=== PATIENT | female | born 1930 | race Two or more races ===

== ENCOUNTER 2017-06-11 14:38 | Inpatient (IN) | payer MEDICARE, MEDICAID ==
[~2017-06-11] VITALS: Ht 152.4 cm; Wt 46.8 kg
--- NOTE | 2017-06-11 14:40 | NUR ---
BBPA FROM [facility] C/O LLE SWELLING AND RECENT LEFT HIP FX SP ORIF, NAD NOTED, VSS, RESP EVEN AND UNLABORED, PUT ON HOSPITAL MD TEMO AT BS.
--- NOTE | 2017-06-11 15:10 | NUR ---
URINE SAMPLE AND BLOOD SENT TO LAB
[2017-06-11 15:18] LABS: BASOPHILS # (AUTO) 0.1 /CMM (0.0-0.2); BASOPHILS % (AUTO) 0.9 % (0.0-2.0); EOSINOPHILS # (AUTO) 0.2 /CMM (0.0-0.7); EOSINOPHILS % (AUTO) 2.8 % (0.0-6.0); HEMATOCRIT 42 % (33-45); HEMOGLOBIN 14.2 g/dL (11.5-14.8); LYMPHOCYTES # (AUTO) 1.4 /CMM (0.8-4.8); LYMPHOCYTES % (AUTO) 21.8 % (20.0-44.0); MEAN CORPUSCULAR HEMOGLOBIN 31 PG (26.0-33.0); MEAN CORPUSCULAR HGB CONC 34 g/dl (31.0-36.0); MEAN CORPUSCULAR VOLUME 92 fL (82-100); MONOCYTES # (AUTO) 0.5 /CMM (0.1-1.30); MONOCYTES % (AUTO) 7.4 % (2.0-12.0); NEUTROPHILS # (AUTO) 4.2 /CMM (1.8-8.9); NEUTROPHILS % (AUTO) 67.1 % (43.0-81.0); PLATELET COUNT (AUTO) 228 /CMM (150-450); RDW COEFFICIENT OF VARIATION 13.7 (11.5-15.0); RED BLOOD CELL COUNT(AUTO) 4.63 MIL/uL (4.0-5.2); WHITE BLOOD COUNT (AUTO) 6.4 K/uL (4.3-11.0)
[2017-06-11 15:30] LABS: CALCIUM, SERUM 9.4 mg/dL (8.5-10.1); CARBON DIOXIDE 29 mmol/L (21-32); CHLORIDE 105 mmol/L (98-107); CREATININE 0.7 mg/dL (0.6-1.3); GLUCOSE 144 mg/dL (74-106); POTASSIUM 3.6 mmol/L (3.5-5.1); SODIUM SERUM 140 mmol/L (136-145); UREA NITROGEN, BLOOD 13 mg/dL (7-18)
[2017-06-11 15:35] LABS: APPEARANCE,URINE Clear (CLEAR); BILIRUBIN,URINE Negative (NEGATIVE); BLOOD, URINE Negative Ery/uL (NEGATIVE); COLOR,URINE Yellow (YELLOW); KETONES,URINE Negative (NEGATIVE); LEUKOCYTE ESTERASE ,URINE Negative (NEGATIVE); NITRITE, URINE Negative (NEGATIVE); PROTEIN,URINE Negative (NEGATIVE); UGLUCOSE >=1000 mg/dL (NEGATIVE); UROBILINOGEN,URINE 0.2 EU/dL (0.2)
[2017-06-11 15:36] LABS: ALANINE AMINOTRANSFERASE 12 U/L (12-78); ALKALINE PHOSPHATASE 101 U/L (46-116); ASPARTATE AMINOTRANSFERASE 13 U/L (15-37); BILIRUBIN,DIRECT 0.2 mg/dL (0.0-0.2); BILIRUBIN,TOTAL 0.6 mg/dL (0.2-1.0); TOTAL PROTEIN, SERUM 7.6 g/dL (6.4-8.2)
[2017-06-11 15:45] LABS: BACTERIA,URINE None seen /HPF (None Seen); RBC,URINE 0-2 /HPF (0-2); SQUAMOUS EPITHELIAL CELL,UR Few /HPF (None Seen); WBC,URINE 0-2 /HPF (0-3); YEAST,URINE Few /HPF (None Seen)
[2017-06-11 16:00] VITALS: BP 161/91
--- NOTE | 2017-06-11 16:35 | NUR ---
U/S TECH AT BEDSIDE FOR LLE DUPLEX ULTRASOUND.
[2017-06-11] MEDS ORDERED: ISOS30TA6 PO (16:57)
[2017-06-11] MEDS ORDERED: RISE35TA8 PO (16:57)
[2017-06-11] MEDS ORDERED: DOCU250C75 PO (16:57)
[2017-06-11] MEDS ORDERED: MIRT15TA7 PO (16:57)
--- NOTE | 2017-06-11 16:57 | NUR ---
LOVENOX 45 MG GIVEN SQ
[2017-06-11] MEDS ORDERED: LINA5TAB PO (16:59)
[2017-06-11] MEDS ORDERED: DAPA5TAB PO (16:59)
[2017-06-11] MEDS ORDERED: METF500T4 PO (16:59)
[2017-06-11] MEDS ORDERED: SIMV20TA6 PO (16:59)
[2017-06-11] MEDS ORDERED: ZOLP5TAB2 PO (16:59)
[2017-06-11] MEDS ORDERED: ENOXAPARIN SODIUM 60 MG/0.6 ML DISP.SYRIN SQ ONE (17:00)
--- NOTE | 2017-06-11 17:01 | NUR ---
REPORT GIVEN TO JAYRO. PT AWAITING TRANSFER TO FLOOR.
--- NOTE | 2017-06-11 17:02 | NUR ---
PAGED DR RUVALCABA
[2017-06-11 17:30] VITALS: BP 161/91
--- NOTE | 2017-06-11 17:30 | NUR ---
INVENTORY CONTROL SPECIALIST NOTES PT. WAS BROUGHT TO ROOM 307 BED 1 IN MEDICALLY STABLE CONDITION. BELONGINGS LIST COMPLETED. PT. IS AMBULATORY, WITH UNSTEADY GAIT. WILL ASSESS AND MONITOR PT.
[2017-06-11] MEDS ORDERED: DEXTROSE 50%-WATER 50 ML DISP.SYRIN IV PRN (18:00)
[2017-06-11] MEDS ORDERED: HYDROCODONE/APAP 5/325MG 1 EACH TABLET PO PRN (18:00)
[2017-06-11] MEDS ORDERED: ONDANSETRON HCL/PF 4 MG/2 ML VIAL IVP PRN (18:00)
[2017-06-11] MEDS ORDERED: ZOLPIDEM TARTRATE 5 MG TABLET PO PRN ×2 (18:00)
[2017-06-11] MEDS ORDERED: MAGNESIUM HYDROXIDE 30 ML UDC PO PRN (18:00)
[2017-06-11] MEDS ORDERED: MAG HYDROX/AL HYDROX/SIMETH 30 ML UDC PO PRN (18:00)
[2017-06-11] MEDS ORDERED: Z GUARD REMEDY 2 OZ OINT TP PRN (18:00)
--- NOTE | 2017-06-11 19:00 | NUR ---
RN NOTES TALKED TO PT.'S GRANDDAUGHTER TO HELP TRANSLATE FOR PT. PT. SAID THAT SHE HAS PAIN IN HER LEFT LEG BUT DOES NOT WANT ANY PAIN MEDICATION AT THIS TIME.
--- NOTE | 2017-06-11 19:44 | NUR ---
ms/rn opening notes PATIENT IN BED, AWAKE, ALERT X2. UNABLE TO SPEAK IN UPPER SORBIAN, REQUIRE SHELTERED WORKSHOP EXECUTIVE DIRECTOR DUE TO REPORT OF WANDERING . WILL CONTINUE TO PROVIDE CARE AND MONITOR PATIENT PROVIDE AND OFFER FOODS. IV ON LEFT AC. W/ NO S/S OF INFILTRATION.
[2017-06-11 19:48] VITALS: BP 145/81
--- NOTE | 2017-06-11 19:50 | NUR ---
RN CLOSING NOTES 1:1 SITTER AT BEDSIDE. PT. IN BED A&OX1-2, CONFUSED. BREATHING UNLABORED, AND EVENLY ON ROOM AIR. NO S/S OF ACUTE DISTRESS. PICTURES TAKEN ON SKIN ASSESSMENT. LEFT ANTECUBITAL IV ACCESS IS PATENT WITH SALINE FLUSH. BED IS IN LOWEST, LOCKED POSITION, AND 3 SIDE RAILS UP. CALL LIGHT WITHIN REACH. WILL ENDORSE REPORT TO SEWER HEAD NURSE.
[2017-06-11] MEDS: MIRTAZAPINE 15 MG TABLET PO SCH (21:49)
[2017-06-11] MEDS: SIMVASTATIN 20 MG TABLET PO SCH (21:49)
[2017-06-11] MEDS: BLOOD SUGAR DIAGNOSTIC 1 EACH STRIP VI SCH (21:50)
--- NOTE | 2017-06-11 23:45 | NUR ---
MS/RN NOTES PATIENT OBSERVED NOT ABLE TO SLEEP , PROVIDED PRN MEDICATION , TOLERATE MED. WILL MONITOR.
[2017-06-12] MEDS: BLOOD SUGAR DIAGNOSTIC 1 EACH STRIP VI SCH ×4 (06:22→21:54)
--- NOTE | 2017-06-12 06:35 | NUR ---
MS/RN CLOSING NOTES PATIENT IN BED, HOB, REQUIRE SITTER FOR SAFETY , REQUIRE ASSISTANCE AND MONITORING, PAIN MEDICATION GIVEN FOR BACK PAIN, ABLE TO SLEEP ATLEAST 5-6 HOURS. RESPIRATIONS EVEN AND UNLABORED, WILL ENDORSE TO AM RN FOR BRIJESH.
[2017-06-12 07:01] LABS: BASOPHILS % (AUTO) 0.5 % (0.0-2.0); EOSINOPHILS # (AUTO) 0.1 /CMM (0.0-0.7); EOSINOPHILS % (AUTO) 1.3 % (0.0-6.0); HEMATOCRIT 43 % (33-45); HEMOGLOBIN 14.5 g/dL (11.5-14.8); LYMPHOCYTES # (AUTO) 0.7 /CMM (0.8-4.8); LYMPHOCYTES % (AUTO) 10.8 % (20.0-44.0); MEAN CORPUSCULAR HEMOGLOBIN 31 PG (26.0-33.0); MEAN CORPUSCULAR HGB CONC 34 g/dl (31.0-36.0); MEAN CORPUSCULAR VOLUME 92 fL (82-100); MONOCYTES # (AUTO) 0.3 /CMM (0.1-1.30); MONOCYTES % (AUTO) 5.5 % (2.0-12.0); NEUTROPHILS % (AUTO) 81.9 % (43.0-81.0); PLATELET COUNT (AUTO) 213 /CMM (150-450); RDW COEFFICIENT OF VARIATION 14.4 (11.5-15.0); RED BLOOD CELL COUNT(AUTO) 4.66 MIL/uL (4.0-5.2); WHITE BLOOD COUNT (AUTO) 6.1 K/uL (4.3-11.0)
[2017-06-12 07:10] LABS: CALCIUM, SERUM 9.4 mg/dL (8.5-10.1); CARBON DIOXIDE 25 mmol/L (21-32); CHLORIDE 106 mmol/L (98-107); CREATININE 0.5 mg/dL (0.6-1.3); GLUCOSE 123 mg/dL (74-106); MAGNESIUM 1.9 mg/dL (1.8-2.4); PHOSPHORUS 3.5 mg/dL (2.5-4.9); POTASSIUM 3.1 mmol/L (3.5-5.1); SODIUM SERUM 144 mmol/L (136-145); UREA NITROGEN, BLOOD 8 mg/dL (7-18)
--- NOTE | 2017-06-12 07:24 | NUR ---
MS RN OPENING NOTES RECEIVED PATIENT IN STABLE CONDITION. PATIENT IS RESTING IN BED. BEDSIDE RAILS ARE UP X2. BED IS LOCKED AND LOWERED. CALL LIGHT IS WITHIN REACH. WILL CONTINUE TO MONITOR.
[2017-06-12 08:00] VITALS: BP 147/78
[2017-06-12] MEDS: ISOSORBIDE MONONITRATE (30MG) 30 MG TAB.SR.24H PO SCH (08:44)
[2017-06-12] MEDS: DOCUSATE SODIUM 250 MG CAPSULE PO SCH ×2 (08:44→17:53)
[2017-06-12] MEDS: INSULIN REGULAR, HUMAN 100 UNIT/ML 3 ML VIAL SQ PRN (13:13)
[2017-06-12] MEDS: POTASSIUM CHLORIDE 20 MEQ TAB.PRT.SR PO SCH ×2 (15:16→16:19)
[2017-06-12 16:00] VITALS: BP 113/68
--- NOTE | 2017-06-12 18:50 | NUR ---
MS RN CLOSING NOTES PATIENT IS RESTING IN BED COMFORTABLY. IN NO APPARENT DISTRESS. BEDSIDE RAILS ARE UP X2. BED IS LOCKED AND LOWERED. WILL ENDORSE CARE TO CCTV TECHNICIAN NURSE FOR BRIJESH.
--- NOTE | 2017-06-12 19:31 | NUR ---
MS/RN OPENING NOTES PATIENT ASSISTED TO BATHROOM W/ SITTER, AWAKE, ALERT X2. CALM AND COOPERATE BUT REQUIRE FREQUENT REORIENTATION PATIENT ATTEMPTS TO GET UP UNASSISTED. RESPIRATION EVEN AND UNLABORED. WILL CONTINUE TO MONITOR.CALL LIGHTS WITHIN REACH.
[2017-06-12 19:46] VITALS: BP 132/68
[2017-06-12 20:00] VITALS: BP 132/68
[2017-06-12] MEDS: SIMVASTATIN 20 MG TABLET PO SCH (21:12)
[2017-06-12] MEDS: MIRTAZAPINE 15 MG TABLET PO SCH (21:12)
[2017-06-12] MEDS: ENOXAPARIN SODIUM 60 MG/0.6 ML DISP.SYRIN SQ SCH (21:16)
[2017-06-12] MEDS: *INSULIN REGULAR(HUMULIN R)HUM 100 UNIT/ML VIAL SQ PRN (22:03)
[2017-06-13 04:00] VITALS: BP 138/66
--- NOTE | 2017-06-13 05:00 | NUR ---
TELE/RN NOTES PATIENT ON PACE MAKER, AT TELE READING WITH SR 65 PACING. ABLETO AMBULATE IN BATHROOM W/ ASSISTANCE, WITH SITTER FOR SAFETY PATIENT GETS UP UNASSISTED. COOPERATIVE TO CARE, SKIN PROVIDED BARRIER SKIN CARE. WILL CONTINUE TO MONITOR AND ENDORSE TO AM RN.
--- NOTE | 2017-06-13 06:39 | NUR ---
TELE/RN CLOSING NOTES PATIENT AWAKE, ALERT, DIETARY CALLED FOR FOOD PREFERENCE, NO BEEF PER FAMILY, TELE READING W/ PACEMAKER AT 65 PACING, RESPIRATION EVEN AND UNLABORED, COOPERATIVE TO CARE BUT REQUIRE EXTENSIVE ASSISTANCE, WILL CONTINUT TO MONITOR AND REPORT ANY CHANGES.OFFERED/PROVIDE FLUIDS, HOB ELEVATED.
[2017-06-13] MEDS: BLOOD SUGAR DIAGNOSTIC 1 EACH STRIP VI SCH ×4 (06:43→21:53)
[2017-06-13 07:13] LABS: CALCIUM, SERUM 8.9 mg/dL (8.5-10.1); CARBON DIOXIDE 27 mmol/L (21-32); CHLORIDE 110 mmol/L (98-107); CREATININE 0.6 mg/dL (0.6-1.3); GLUCOSE 108 mg/dL (74-106); POTASSIUM 3.6 mmol/L (3.5-5.1); SODIUM SERUM 146 mmol/L (136-145); UREA NITROGEN, BLOOD 11 mg/dL (7-18)
[2017-06-13 08:00] VITALS: BP 140/93
--- NOTE | 2017-06-13 08:00 | NUR ---
ALERT AND ORIENTED X1,YAKUT SPEAKING.
[2017-06-13] MEDS: ISOSORBIDE MONONITRATE (30MG) 30 MG TAB.SR.24H PO SCH (09:39)
[2017-06-13] MEDS: DOCUSATE SODIUM 250 MG CAPSULE PO SCH ×2 (09:39→17:30)
--- NOTE | 2017-06-13 11:30 | NUR ---
DTR. IN TO VISIT.
[2017-06-13] MEDS: INSULIN REGULAR, HUMAN 100 UNIT/ML 3 ML VIAL SQ PRN (11:58)
[2017-06-13 16:00] VITALS: BP 115/62
--- NOTE | 2017-06-13 18:00 | NUR ---
PT,S APPETITE BETTER,SITTER AT BEDSIDE.
[2017-06-13] MEDS: *INSULIN REGULAR(HUMULIN R)HUM 100 UNIT/ML VIAL SQ PRN ×2 (18:01→21:54)
--- NOTE | 2017-06-13 19:30 | NUR ---
rn initial notes: received report from gloria tristan in bed, awake, a/o x1 serbian speaking, sitter at bedside, pt on ra, respiration even and unlabored, on tele sinus rhythm hr 68, pt has left cw pacemaker. right ac iv access patent and flushing well, on hl. safety precautions for fall initiated call light in reach, will continue to monitor.
[2017-06-13 20:00] VITALS: BP 124/62
--- NOTE | 2017-06-13 20:30 | NUR ---
rn notes: from 322-1 pt was moved to 325-1, all belongings sent with the pt upon transfer, note from family posted on the wall.
[2017-06-13] MEDS: MIRTAZAPINE 15 MG TABLET PO SCH (21:29)
[2017-06-13] MEDS: ACETAMINOPHEN 325 MG TABLET PO PRN (21:29)
[2017-06-13] MEDS: SIMVASTATIN 20 MG TABLET PO SCH (21:29)
[2017-06-13] MEDS: ENOXAPARIN SODIUM 60 MG/0.6 ML DISP.SYRIN SQ SCH (21:30)
--- NOTE | 2017-06-13 21:30 | NUR ---
prn tylenol: pt kept pointing onto her left hip, st helen[place] speaking, confused, used flacc scale score of 3, prn tylenol 650 mg tab po administered to the pt at this time
--- NOTE | 2017-06-13 21:54 | NUR ---
accu check: blood sugar checked and reveal 102, no insulin coverage given per sliding scale, will monitor pt for any s/s of hypoglycemia or hyperglycemia
[2017-06-14] MEDS: INSULIN REGULAR, HUMAN 100 UNIT/ML 3 ML VIAL SQ PRN ×2 (06:25→11:43)
[2017-06-14] MEDS: BLOOD SUGAR DIAGNOSTIC 1 EACH STRIP VI SCH ×2 (06:25→11:40)
--- NOTE | 2017-06-14 06:26 | NUR ---
ACCU CHECK: BLOOD SUGAR IS 124, NO INSULIN COVERAGE GIVEN PER SLIDING SCALE, WALE MONITOR FOR ANY S/S OF HYPERGLYCEMIA OR HYPOGLYCEMIA
--- NOTE | 2017-06-14 06:39 | NUR ---
RN CLOSING NOTES: PT IN BED, AWAKE, REMAINS A/O X1, ON RA, APPEARS CALM AND COMFORTABLE, NO FACIA GRIMACE NOTED, SITTER AT BEDSIDE, IV ACCESS REMAINS PATENT AND FLUSHING WELL, ON HL.POSSIBLE DC TODAY, EXIT CARE COMPLETED,VS REMAINS STABLE, NEEDS ATTENDED, SAFETY PRECAUTIONS FOR FALL REMAINS ENGAGED, CALL LIGHT IN REACH WILL ENDORSE TO DAY RN FOR BRIJESH.
--- NOTE | 2017-06-14 07:30 | NUR ---
m/s feather drying machine operator: initial assessment received pt in bed awake, alert to self only; french speaking only. continue on 1:1 sitter. pt for d'c planning today. appears comfortable. call light within reach. reality orientation provided prn. will continue to monitor.
[2017-06-14 08:00] VITALS: BP 131/77
[2017-06-14 09:59] VITALS: BP 131/77
[2017-06-14] MEDS: DOCUSATE SODIUM 250 MG CAPSULE PO SCH (09:59)
[2017-06-14] MEDS: ISOSORBIDE MONONITRATE (30MG) 30 MG TAB.SR.24H PO SCH (09:59)
--- NOTE | 2017-06-14 10:00 | NUR ---
m/s radio station operator: notes pt wearing her own clothes, pt very protective of herself, pt refusing help from sitter and nurse. pt refused body check. pt able to go the bathroom on own. instructed to call for assistance. will continue to monitor.
--- NOTE | 2017-06-14 13:00 | NUR ---
m/s director of campus recreation: notes received order from dr. garcia to Transfer pt to custodial facility for continuation of care. oxana (case management) made aware. [facility] will notify family per oxana. granddaughter doesn't want pt to go back to [facility], family wants to take her home. cn aware.
[2017-06-14] MEDS: ACETAMINOPHEN 325 MG TABLET PO PRN (14:12)
--- NOTE | 2017-06-14 14:25 | NUR ---
m/s nursing unit manager: notes dr. garcia notified and made aware re: family refusing snf or assisted living facility. family wants to take pt home. dr. garcia okay with it and will come up to write a xarelto prescription. cn aware. family made aware.
--- NOTE | 2017-06-14 14:35 | NUR ---
m/s computer game programmer: notes oxana (case management) here and made aware. oxana spoke to daughter in person; also called daniel (granddaughter). family still refusing snf and assisted living facility. cn aware.
--- NOTE | 2017-06-14 14:40 | NUR ---
m/s manager nc: notes pt still refused skin assessment.
--- NOTE | 2017-06-14 14:45 | NUR ---
m/s supervisor of operations: notes dr. garcia here to write the prescription. discharged instruction with prescription given to daughter and verbalized understanding. h/l removed with tip intact with no bleeding, no redness, and no swelling noted.
--- NOTE | 2017-06-14 14:55 | NUR ---
m/s sap ppm consultant: discharged discharged home in stable condition with all dc papers, prescription, and belongings via private car accompanied by daughter.
== END 2017-06-14 15:00 | disposition home or self-care (01) | DRG 299 ==
LOC: ER 14:41 → MED 17:21 → TELE 06-13 06:25 → MED 06-13 21:19
PROVIDERS: ADMIT Internal Medicine; ATTEND Internal Medicine
DX: I82.412 Acute embolism and thrombosis of left femoral vein (principal); G93.41 Metabolic encephalopathy; K56.3 Gallstone ileus; I82.432 Acute embolism and thrombosis of left popliteal vein; R62.7 Adult failure to thrive; E11.9 Type 2 diabetes mellitus without complications; E05.90 Thyrotoxicosis, unspecified without thyrotoxic crisis or storm; F32.9 Major depressive disorder, single episode, unspecified; K21.9 Gastro-esophageal reflux disease without esophagitis; F03.90 Unspecified dementia, unspecified severity, without behavioral disturbance, psychotic disturbance, mood disturbance, and anxiety; E78.2 Mixed hyperlipidemia; Z95.0 Presence of cardiac pacemaker; Z95.1 Presence of aortocoronary bypass graft; M81.0 Age-related osteoporosis without current pathological fracture; I25.10 Atherosclerotic heart disease of native coronary artery without angina pectoris; Z96.642 Presence of left artificial hip joint; F41.9 Anxiety disorder, unspecified; I10 Essential (primary) hypertension
CPT/HCPCS: 36415; 71010-TC; 80048-TC; 80076-TC; 81000-TC; 82962-TC; 83735-TC; 84100-TC; 84443-TC; 85025-TC; 87081-TC; 92521; 93971-TC; A4606; J1650; J1815; J2405; Z7610